=== PATIENT | male | born 1990 | race Caucasian/White ===

== ENCOUNTER → 2025-03-19 13:55 | Outpatient (REF) | payer OTHER, SELFPAY | LOC: HWRAD 13:55 | PROVIDERS: ATTENDING PHYSICIAN Nurse Practitioner Family | DX: R22.0 Localized swelling, mass and lump, head (principal) | CPT/HCPCS: 76536 ==

== ENCOUNTER → 2025-04-17 12:50 | Outpatient (REF) | payer OTHER, SELFPAY | LOC: HWRAD 12:50 | PROVIDERS: ATTENDING PHYSICIAN Nurse Practitioner Adult Health | DX: R22.1 Localized swelling, mass and lump, neck (principal) | CPT/HCPCS: 70480 ==